=== PATIENT | female | born 1965 | race Caucasian/White ===

== ENCOUNTER 2019-04-14 09:41 | Day surgery (SDC) | payer OTHER, SELFPAY ==
[2019-04-14 10:12] VITALS: BMI 30.9
[2019-04-14 10:17] VITALS: BP 143/90; PULSE 73; RESP 16; TEMP 36.3; O2SAT 99
[2019-04-14] MEDS: SODIUM CHLORIDE 0.9% 1,000 ML 84 ML IV (10:28)
--- NOTE | 2019-04-14 11:46 | PM.HP.1 ---
History of Present Illness Date Patient Seen: 04/14/19 Time Patient Seen: 11:46 Chief complaint: [id number] Narrative: Patient is a woman here for screening colonoscopy. She has no idea when her last colonoscopy was. She is only 53. She thinks it might have been for bleeding. Patient History Medical History (Updated 04/14/19 @ 11:48 by Miller Chan MD) Anxiety (Chronic) Hypertension (Chronic) Surgical History (Updated 04/14/19 @ 11:50 by Miller Chan MD) H/O craniotomy (Resolved) History of (Resolved) Social History household members: spouse Smoking Status: Former smoker Family & Social History Social History: household members spouse Tobacco & Substance use: Smoking Status Former smoker Meds Home Medications Medication Instructions Recorded Confirmed Type atenolol 50 mg PO BID #0 01/06/13 04/14/19 History verapamil ER (SR) 180 mg 1 tab PO DAILY 30 Days #30 tab 09/09/18 04/14/19 History tablet,extended release verapamil ER (SR) 240 mg 1 tab PO DAILY 30 Days #30 tab 09/09/18 04/14/19 History tablet,extended release bupropion HCl XL 150 mg 24 hr 150 mg PO BEDTIME #30 tab 10/10/18 04/14/19 Rx tablet, extended release bupropion HCl XL 300 mg 24 hr 300 mg PO BEDTIME #30 tab 10/10/18 04/14/19 Rx tablet, extended release lisinopril 10 mg tablet 10 mg PO DAILY 90 Days tab 11/09/18 04/14/19 History lorazepam 0.5 mg tablet 0.5 mg PO BID PRN 10 Days #20 tab 11/09/18 04/14/19 History quetiapine 25 mg tablet 25 mg PO BEDTIME #30 tab 11/09/18 04/14/19 Rx lamotrigine 200 mg tablet 500 mg PO BEDTIME #75 tab 01/13/19 04/14/19 Rx dexlansoprazole [Dexilant] 1 tab PO DAILY 04/14/19 04/14/19 History norethindrone-e.estradiol-iron 1 tab PO DAILY 04/14/19 04/14/19 History [[place] Fe 1.5/30 (28)] Allergies Allergy/AdvReac Type Severity Reaction Status Date / Time No Known Drug Allergies Allergy Verified 04/14/19 10:06 Review of Systems Review of Systems All systems reviewed & are unremarkable except as noted in HPI and below Exam Vital Signs (past 8 hours): - 04/14/19 10:17 Temperature 97.3 F L Pulse Rate 73 Respiratory Rate 16 Blood Pressure 143/90 H Pulse Oximetry 99 Oxygen Delivery Method Room Air Narrative Exam Narrative: Pleasant cooperative patient no apparent distress. Lungs are clear to auscultation. No rales or rhonchi. Heart regular rate and rhythm no murmur gallop. Abdomen is soft nontender without mass. No obvious hernias. Patient is alert and oriented x3. Assessment & Plan Assessment & Plan narrative: The patient for a screening colonoscopy. I have discussed the procedure with them. Risks of bleeding, perforation which would necessitate major operation, failure to find remove all lesions, the potential tattoo were all discussed. All questions were answered. They wished to proceed.
--- NOTE | 2019-04-14 11:50 | PM.PREOP ---
Pre-operative Note Interval Note History & Physical reviewed/Exam performed by Physician: Yes Changes to H&P: No ASA Class (for procedural sedation): II
[2019-04-14] MEDS: MIDAZOLAM 5 MG/5 ML VIAL IV (12:11)
[2019-04-14] MEDS: fentaNYL 250 MCG/5 ML INJ IV (12:11)
--- NOTE | 2019-04-14 12:16 | PM.OP.ENDO ---
Operative Date/Time/Diagnoses Date of procedure: 04/14/19 Time of procedure: 12:16 Post-op diagnosis: same (Normal exam) Procedure & Clinicians Study performed: Colonoscopy Same procedure as scheduled: Yes Indications: Screening Surgeon: Miller Chan Procedure Notes SCOAP/Timeout: Performed Procedure in detail: The patient was placed in the left lateral decubitus position and underwent IV sedation directed by the surgeon consisting of fentanyl and Versed. Digital exam was unremarkable. The scope was inserted and advanced through the rectum into the sigmoid, descending, transverse, and ascending colon.. The cecum was reached identified by the ileocecal valve and the appendiceal opening. The ileocecal valve was successfully cannulated. The terminal ileum was normal in appearance. The scope was gradually brought out. No Polyps were found. The scope ultimately was retroflexed in the rectum. The appearance was normal except for minor scarring. The scope was removed and the patient tolerated the procedure well Scope withdrawal time: 9 minutes Sedation minutes: 20 Findings: other findings (Normal exam) Specimen(s): none sent Complications: none Recommendations: Colonscopy in 10 years Follow up: as needed Disposition: PACU
[2019-04-14 12:19] VITALS: BP 140/84; PULSE 66; RESP 10; TEMP 36.8; O2SAT 96
--- NOTE | 2019-04-14 12:19 | P.OP.ENDO_ITS ---
Operative Date/Time/Diagnoses Date of procedure: 04/14/19 Time of procedure: 12:16 Post-op diagnosis: same (Normal exam) Procedure & Clinicians Study performed: Colonoscopy Same procedure as scheduled: Yes Indications: Screening Surgeon: Miller Chan Procedure Notes SCOAP/Timeout: Performed Procedure in detail: The patient was placed in the left lateral decubitus position and underwent IV sedation directed by the surgeon consisting of nicol Marti. Digital exam was unremarkable. The scope was inserted and advanced through the rectum into the sigmoid, descending, transverse, and ascending colon.. The cecum was reached identified by the ileocecal valve and the appendiceal opening. The ileocecal valve was successfully cannulated. The terminal ileum was normal in appearance. The scope was gradually brought out. No Polyps were found. The scope ultimately was retroflexed in the rectum. The appearance was normal except for minor scarring. The scope was removed and the patient tolerated the procedure well Scope withdrawal time: 9 minutes Sedation minutes: 20 Findings: other findings (Normal exam) Specimen(s): none sent Complications: none Recommendations: Colonscopy in 10 years Follow up: as needed Disposition: PACU
[2019-04-14 12:23] VITALS: BP 143/82; PULSE 71; RESP 12; O2SAT 97
[2019-04-14 12:29] VITALS: BP 140/77; PULSE 64; RESP 12; O2SAT 97
[2019-04-14 12:34] VITALS: BP 141/79; PULSE 68; RESP 15; O2SAT 91
[2019-04-14 13:00] VITALS: BP 140/79; PULSE 63; RESP 14; TEMP 37.2; O2SAT 99
== END 2019-04-14 13:15 | disposition home or self-care (01) ==
PROVIDERS: PCP Physician Assistant Medical; Visit Provider Specialist
PROC: 0DJD8ZZ Inspection of Lower Intestinal Tract, Via Natural or Artificial Opening Endoscopic (ICD-10-PCS; CPT 45378; principal; 2019-04-14 10:45)
DX: Z12.11 Encounter for screening for malignant neoplasm of colon (principal); F41.9 Anxiety disorder, unspecified; I10 Essential (primary) hypertension; Z87.891 Personal history of nicotine dependence
CPT/HCPCS: 45378; 99152; J2250; J3010

== ENCOUNTER → 2021-03-04 12:19 | Outpatient (CLI) | payer OTHER, SELFPAY ==
[2021-03-04] MEDS: COVID-19 VACC #1, MRNA(MOD) 100 MCG/0.5 ML VIAL IM (12:26)
== END ==
PROVIDERS: PCP Physician Assistant Medical; Visit Provider Internal Medicine
DX: Z23 Encounter for immunization (principal)
CPT/HCPCS: 0011A; 91301